=== PATIENT | male | born 1980 | race Caucasian/White ===

== ENCOUNTER 2024-05-14 06:13 | Observation (INO) | payer BC ==
[2024-05-12 11:28] VITALS: BMI 23.7
[2024-05-14] MEDS ORDERED: Lidocaine 1% PF 5 ML VIAL ONE (06:51)
[2024-05-14] MEDS ORDERED: PROPOFOL 20 ML ONE (06:51)
[2024-05-14] MEDS ORDERED: fentaNYL PF 100 MCG/2 ML SYRINGE ONE (06:51)
[2024-05-14] MEDS ORDERED: Bupivacaine PF 0.5% 30 ML VIAL ONE (07:11)
[2024-05-14] MEDS ORDERED: Midazolam HCl 2 mg/2 ml Vial ONE (07:11)
[2024-05-14] MEDS ORDERED: CEFAZOLIN 2 GM VIAL ONE (07:13)
[2024-05-14] MEDS ORDERED: Sodium Chloride 0.9% 100 ML ONE (07:13)
[2024-05-14] MEDS ORDERED: Vancomycin (BATCH) 1.5 GM/300 ML BAG ONE (07:17)
[2024-05-14] MEDS ORDERED: Bupivacaine HCl 0.5%/Epinephrine 1:200,000/PF 30 ml Vial ONE (07:24)
[2024-05-14] MEDS ORDERED: Promethazine HCl 25 MG/ML VIAL IM PRN ×2 (07:45→09:20)
[2024-05-14] MEDS ORDERED: Ropivacaine 0.2% 550 ML 550 ML NERVE BLCK SCH (07:45)
[2024-05-14] MEDS ORDERED: Ondansetron PF 4 MG/2 ML Vial IVP PRN (07:45)
[2024-05-14] MEDS ORDERED: Zolpidem Tartrate 5 MG TAB PO PRN (07:45)
[2024-05-14] MEDS ORDERED: fentaNYL 50 mcg/mL 1 mL Vial SLOW IVP PRN (07:46)
[2024-05-14] MEDS ORDERED: Dexamethasone 20 MG/5 ML VIAL ONE (08:15)
[2024-05-14] MEDS ORDERED: Ondansetron HCl/PF 4 MG/2 ML Vial IVP PRN (09:20)
[2024-05-14] MEDS ORDERED: diphenhydrAMINE 50 MG CAP PO PRN (09:22)
[2024-05-14] MEDS ORDERED: HYDROcodone/Acetaminophen 7.5/325 mg Tablet PO PRN ×2 (09:22)
[2024-05-14] MEDS ORDERED: Bisacodyl 10 MG SUPP PR PRN (09:22)
[2024-05-14] MEDS ORDERED: Acetaminophen 500 MG TAB PO PRN (09:22)
[2024-05-14] MEDS ORDERED: Methocarbamol 500 MG TAB PO PRN (09:22)
[2024-05-14] MEDS ORDERED: Milk Of Magnesia 30 ML UDCUP PO PRN (09:22)
[2024-05-14] MEDS ORDERED: traMADol HCl 50 MG TAB PO PRN (09:22)
[2024-05-14] MEDS ORDERED: fentaNYL 50 mcg/mL 1 mL Vial ONE (09:40)
[2024-05-14] MEDS ORDERED: Promethazine HCl 25 MG/ML VIAL ONE (09:40)
[2024-05-14] MEDS: Dextrose 5 %-0.45 % NaCl 1,000 ML IV SCH (10:30)
[2024-05-14] MEDS: Ketorolac Tromethamine 30 MG (1 mL) VIAL IVP SCH (13:40)
[2024-05-14] MEDS: CEFAZOLIN 2 GM in Sodium Chloride 0.9% 100 ML IVPB SCH (13:40)
[2024-05-14] MEDS: Vancomycin 1.5 GM in Sodium Chloride 0.9% 250 ML 300 ML IVPB SCH (18:25)
[2024-05-14] MEDS: Famotidine 20 MG TAB PO SCH (19:52)
[2024-05-15 07:57] VITALS: TEMP 97.1
[2024-05-15 11:24] VITALS: BP 112/69
== END 2024-05-15 12:05 | disposition home or self-care (01) ==
LOC: SDC 06:13 → SURG A 10:35
PROVIDERS: ADMIT Orthopaedic Surgery; ATTEND Orthopaedic Surgery
PROC: 0MRN47Z Replacement of Right Knee Bursa and Ligament with Autologous Tissue Substitute, Percutaneous Endoscopic Approach (ICD-10-PCS; principal; 2024-05-15)
DX: S83.511A Sprain of anterior cruciate ligament of right knee, initial encounter (principal); E83.51 Hypocalcemia; R79.89 Other specified abnormal findings of blood chemistry; I81 Portal vein thrombosis; K85.90 Acute pancreatitis without necrosis or infection, unspecified; Y93.75 Activity, martial arts
CPT/HCPCS: A4306; C1713; C1889; J0665; J1100; J1885; J2250; J2550; J2704; J2795; J3010; J3370; J3490; J7042; J7050

== ENCOUNTER 2025-09-08 13:30 | Outpatient (CLI) | payer BC | END 2025-09-08 13:31 | disposition home or self-care (01) | LOC: SCSMRI 13:30 | PROVIDERS: ATTEND Orthopaedic Surgery | DX: M23.92 Unspecified internal derangement of left knee (principal); S80.12XA Contusion of left lower leg, initial encounter; M94.8X6 Other specified disorders of cartilage, lower leg; S83.512A Sprain of anterior cruciate ligament of left knee, initial encounter ==